=== PATIENT | female | born 1950 | race Two or more races ===

== ENCOUNTER → 2020-06-16 | Outpatient (CLI) | payer OTHER | END | disposition home or self-care (01) | LOC: OFIC 805 13:45 | PROVIDERS: ATTEND Otolaryngology Otology & Neurotology | DX: R42 Dizziness and giddiness (principal) ==

== ENCOUNTER → 2020-07-12 | Outpatient (CLI) | payer OTHER | END | disposition home or self-care (01) | LOC: OFIC 805 10:09 | PROVIDERS: ATTEND Otolaryngology Otology & Neurotology | DX: H81.4 Vertigo of central origin (principal) ==